=== PATIENT | female | born 1955 | race American Indian/Alaskan Native ===

== ENCOUNTER 2019-02-20 07:01 | Day surgery (SDC) | payer OTHER ==
[2019-02-20] MEDS ORDERED: WATER FOR IRRIG STERILE 250 ML BOTTLE IR ONE ×2 (07:43→08:53)
[2019-02-20] MEDS ORDERED: WATER FOR IRRIG STERILE 1,000 ML BOTTLE ONE ×2 (07:43→08:53)
--- NOTE | 2019-02-20 07:44 | Anesthesia Consultation ---
Anesthesia Consult and Med Hx Date of service: 02/20/19 - Airway Anesthetic Teeth Evaluation: Good, Partials (upper) ROM Head & Neck: Adequate Mental/Hyoid Distance: Adequate Mallampati Class: Class II Intubation Access Assessment: Probably Good - Pre-Operative Health Status ASA Pre-Surgery Classification: ASA2 Proposed Anesthetic Plan: MAC - Cardiovascular System Hx Hypertension: Yes
--- NOTE | 2019-02-20 07:44 | Anesthesia Day of Surgery ---
Anesthesia Day of Surgery - Day of Surgery Patient Examined: Yes Patient H&P Reviewed: Yes Patient is NPO: Yes
[2019-02-20] MEDS ORDERED: SODIUM CHLORIDE 0.9% 1000 ML 1,000 ML IV SCH (08:00)
[2019-02-20] MEDS ORDERED: PROPOFOL 200 MG/20 ML VIAL IV ONE ×2 (08:03)
[2019-02-20] MEDS ORDERED: LIDOCAINE MPF (2%) 20 MG/1 ML VIAL 5 ML ONE (09:00)
--- NOTE | 2019-02-20 09:09 | Operative Report ---
Operative Report Operative Report: DOS: 02/20/19 SURGEON: Tre Mason MD COLONOSCOPY with snare polypectomy REPORT PREOPERATIVE AND POSTOPERATIVE DIAGNOSIS: screening colon DESCRIPTION OF PROCEDURE: The colonoscope was passed to the terminal ileum as identified by the ileal tissue. Scope was carefully withdrawn. Retroflexion was performed in the rectum. At the end of procedure, the scope was cleaned using normal technique. Vital signs monitored continuously throughout. SEDATION: Provided by [facility]. Quality of the prep was good COMPLICATIONS: None. ESTIMATED BLOOD LOSS: minimal FINDINGS: * Normal terminal ileum * 6mm pedunculated polyp in the ascending colon, removed with hot snare polypectomy * Small internal hemorrhoids * Remainder of the exam was normal RECOMMENDATIONS: Repeat colonoscopy in 5 years for surveillance CC note to PCP Klaudia Jesus
[2019-02-20 10:21] VITALS: BP 121/54
--- NOTE | 2019-02-20 20:26 | Post Anesthesia Evaluation ---
- Post Anesthesia Evaluation Patient Participated: Yes Airway Patent: Yes Stable Respiratory Function: Yes Nausea/Vomiting: No Temp > 96.8F: Yes Pain Manageable: Yes Adequeate Hydration: Yes Anesthesia Complications: No Block Receding Appropriately: Not Applicable Patient on Ventilator: No
== END 2019-02-20 07:02 | disposition home or self-care (01) ==
LOC: GIO 07:01
PROVIDERS: ATTEND Student in an Organized Health Care Education/Training Program
DX: Z12.11 Encounter for screening for malignant neoplasm of colon (principal); D12.2 Benign neoplasm of ascending colon; K64.8 Other hemorrhoids; I10 Essential (primary) hypertension; Z79.899 Other long term (current) drug therapy
CPT/HCPCS: 45385; 88305; J2704; J7030